=== PATIENT | female | born 1950 | race African-American/Black ===

== ENCOUNTER 2022-03-24 15:46 | Outpatient (REF) | payer OTHER, SELFPAY ==
--- NOTE | ~2022-03-24 | MM_ITS ---
EXAMINATION: MM SCREENING DIGITAL BREAST TOMOSYNTHESIS, BILATERAL CLINICAL INFORMATION: Screening. Asymptomatic. The lifetime risk of breast cancer based on the Tyrer-Cuzick Model is 5%. COMPARISON: Outside breast imaging: Bilateral ultrasound 02/28/2019; mammography 02/28/2019, 02/19/2019 ([place], [place]). TECHNIQUE: Digital breast tomosynthesis is performed in both the craniocaudal and mediolateral oblique views along with computer-aided detection (CAD). Synthesized 2D images are generated from the tomosynthesis. Additional right MLO view is provided. FINDINGS: There are scattered areas of fibroglandular density (ACR BI-RADS breast composition Category b). There are scattered small minor bilateral parenchymal asymmetries similar to prior outside exams. Small circumscribed oval nodule central 9:00 left breast is stable. Again, there are biopsy clip markers mid medial left breast and posterior upper outer right breast. No developing density or architectural abnormality or abnormal calcifications. No significant changes. MM/MM tomosynthesis screening BI IMPRESSION: No mammographic evidence of malignancy. ASSESSMENT: BI-RADS 2: Benign RECOMMENDATION: Routine annual mammography screening. This patient's information was entered into a reminder system with a target due date for their next mammogram.
== END 2022-03-24 15:47 | disposition home or self-care (01) ==
LOC: HO.MAMMO 15:46
PROVIDERS: Visit Provider Internal Medicine
DX: Z12.31 Encounter for screening mammogram for malignant neoplasm of breast (principal)
CPT/HCPCS: 77063; 77067

== ENCOUNTER 2022-05-24 13:12 | Outpatient (REF) | payer OTHER, SELFPAY ==
[2022-05-24 13:22] LABS: MANUAL DIFF FLAG NO
[2022-05-24 14:01] LABS: Basophils Percent Auto 0.4 % (0-2); Eosinophils Absolute Auto 0.1 X10*3/uL (0.0-0.4); Eosinophils Percent Auto 1.7 % (0-4); Hematocrit 37.9 % (37.0-47.0); Hemoglobin 12.6 g/dl (12.0-16.0); Imm Gran Abs Auto 0.02 X10*3/uL (0.00-0.03); Imm Gran Pct Auto 0.3 % (0.0-0.4); Lymphocytes Absolute Auto 3.3 X10*3/uL (1.2-4.9); Lymphocytes Percent Auto 44.4 % (20-40); Mean Corpuscular HGB Conc 33.2 g/dl (31.0-35.0); Mean Corpuscular Hemoglobin 30.4 pg (27.0-33.0); Mean Corpuscular Volume 91.5 fL (80.0-98.0); Mean Platelet Volume 9.6 fL (9.4-12.3); Monocytes Absolute Auto 0.4 X10*3/uL (0.1-1.2); Monocytes Percent Auto 4.8 % (2-11); Neutrophils Absolute Auto 3.6 x10*3/uL (2.0-8.3); Neutrophils Percent Auto 48.4 % (45-73); Platelet Count 386 X10*3/uL (160-400); Red Blood Count 4.14 X10*6/uL (4.20-5.50); Red Cell Distribution Width 12.9 % (11.0-16.0); White Blood Count 7.5 X10*3/uL (4.8-10.8)
[2022-05-24 14:16] LABS: Alanine Aminotransferase 34 U/L (0-31); Albumin Level 4.2 g/dL (3.5-5.0); Alkaline Phosphatase 80 U/L (39-117); Anion Gap 16 (12-20); Aspartate Amino Transferase 26 U/L (5-31); Bilirubin Total 0.3 mg/dL (0.0-1.0); Blood Urea Nitrogen 15 mg/dL (9-16); Calcium 9.6 mg/dL (8.4-10.2); Carbon Dioxide 26 mmol/L (22-29); Chloride 103 mmol/L (96-108); Cholesterol 196 mg/dL; Estimated Glomerular Filt Rate > 60; Glucose Random 172 mg/dL (60-115); HDL Cholesterol 55 mg/dL; LDL Cholesterol Calculated 126 mg/dl; Potassium 4.5 mmol/L (3.3-5.1); Sodium 140 mmol/L (135-145); Total Protein 7.5 g/dL (6.5-8.0); Triglycerides 76 mg/dL
== END 2022-05-24 13:13 | disposition home or self-care (01) ==
LOC: HO.LAB 13:12
PROVIDERS: PCP Internal Medicine; Visit Provider Internal Medicine
DX: Z00.00 Encounter for general adult medical examination without abnormal findings (principal); I10 Essential (primary) hypertension; Z13.31 Encounter for screening for depression
CPT/HCPCS: 36415; 80053; 80061; 85025

== ENCOUNTER 2022-12-11 13:13 | Outpatient (REF) | payer OTHER, SELFPAY ==
[2022-12-11 14:40] LABS: Estimated Average Glucose 160 mg/dL; Hemoglobin A1c % 7.2 %
[2022-12-11 15:04] LABS: Alanine Aminotransferase 23 U/L (0-31); Albumin Level 4.2 g/dL (3.5-5.0); Alkaline Phosphatase 73 U/L (39-117); Anion Gap 13 (12-20); Aspartate Amino Transferase 20 U/L (5-31); Bilirubin Total 0.5 mg/dL (0.0-1.0); Blood Urea Nitrogen 13 mg/dL (9-16); Calcium 9.7 mg/dL (8.4-10.2); Carbon Dioxide 28 mmol/L (22-29); Chloride 104 mmol/L (96-108); Estimated Glomerular Filt Rate > 60; Glucose Random 109 mg/dL (60-115); Potassium 4.6 mmol/L (3.3-5.1); Sodium 140 mmol/L (135-145); Total Protein 7.3 g/dL (6.5-8.0)
== END 2022-12-11 13:14 | disposition home or self-care (01) ==
LOC: HO.LAB 13:13
PROVIDERS: PCP Internal Medicine; Visit Provider Internal Medicine
DX: I10 Essential (primary) hypertension (principal); R73.01 Impaired fasting glucose
CPT/HCPCS: 36415; 80053; 83036

== ENCOUNTER 2023-01-22 08:27 | Day surgery (SDC) | payer OTHER, SELFPAY ==
[2023-01-17 12:15] VITALS: BMI 32.1
--- NOTE | 2023-01-19 08:06 | MHC.SHP ---
Pre-Procedural Eval Section A Date of Service: 01/19/23 The patient is an INPATIENT: No Changes since office visit: No Cold of Flu in the past 2 weeks, No New Medical Problems, No Changes in Medication and No Patient answered all questions The History & Physical has been completed within 30 days and I have reviewed it.: Yes Section B Chief Complaint: Age-related nuclear cataract, right eye Allergies: Allergies Allergy/AdvReac Type Severity Reaction Status Date / Time No Known Allergies Allergy Verified 01/17/23 11:03 Plan Diagnosis/Plan: Unchanged I have reviewed the history and physical and performed a pertinent physical examination on my patient. No changes have occurred unless specified. Time Spent With Patient Time: Total time managing care of this patient today ____ minutes.
--- NOTE | 2023-01-19 09:18 | P.CONAN_ITS ---
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 If so, by whom?: No Advance Directives: No Advance Directives Information Provided: Yes Advance Directives on File: No Recently lost weight without trying: No Nutrition Risks: No Nutritional Risk Patient : No Poor oral hygiene: Yes (full upper and lower dentures) Meds Allergies Allergy/AdvReac Type Severity Reaction Status Date / Time No Known Allergies Allergy Verified 01/17/23 11:03 Home Medications Medication Instructions Recorded Confirmed Last Taken Type cetirizine 10 mg tablet (Zyrtec) 10 mg PO DAILY 01/17/23 01/17/23 Unknown History ibuprofen 600 mg tablet 600 mg PO TID PRN pain 01/17/23 01/17/23 Unknown History losartan 50 mg-hydrochlorothiazide 1 tab PO DAILY 01/17/23 01/17/23 Unknown History 12.5 mg tablet metformin 500 mg tablet,extended 500 mg PO BID 01/17/23 01/17/23 Unknown History release 24 hr Exam Exam Date and Time: January 19, 2023 0918 Height,Weight and Vital Signs: Height 5 ft 1 in Weight 77.111 kg Assessment and Plan Assessment Anesthesia Assessment: Chart Reviewed Documented by User: Alexandra Olvera MD 01/22/23 10:07 [facility] Past Medical History Medical History (Updated 01/17/23 @ 11:03 by Rita Mansfield RN) Diabetes Elevated cholesterol HTN (hypertension) Hx of fracture of arm Family History Family history of problems with anesthesia: No Surgical History Surgical History (Updated 01/17/23 @ 12:00 by Rita Mansfield RN) Hx of elbow surgery Hx of hysterectomy History of Problems with Anesthesia: No Social History Social History 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 If so, by whom?: No Advance Directives: No Advance Directives Information Provided: Yes Advance Directives on File: No Recently lost weight without trying: No Nutrition Risks: No Nutritional Risk Patient : No Poor oral hygiene: Yes (full upper and lower dentures) Meds Allergies Allergy/AdvReac Type Severity Reaction Status Date / Time No Known Allergies Allergy Verified 01/17/23 11:03 Home Medications Medication Instructions Recorded Confirmed Last Taken Type cetirizine 10 mg tablet (Zyrtec) 10 mg PO DAILY 01/17/23 01/17/23 Unknown History ibuprofen 600 mg tablet 600 mg PO TID PRN pain 01/17/23 01/17/23 Unknown History losartan 50 mg-hydrochlorothiazide 1 tab PO DAILY 01/17/23 01/17/23 Unknown History 12.5 mg tablet metformin 500 mg tablet,extended 500 mg PO BID 01/17/23 01/17/23 Unknown History release 24 hr Exam Airway Mallampati Class: II TM Dist: >3cm Neck ROM: Full Heart: rrr Lungs: cta Assessment and Plan Assessment Anesthesia Assessment: Anesthesia Plan Discussed Final Anesthetic Review Family History of Problems with Anesthesia: No History of Problems with Anesthesia: No NPO: Yes ASA Class: II Final Preanesthetic Review: No Changes in Pt Med Stat, Meds/Allgs Chart Reviewed and Consent Obtained/Reviewed Patient Risk: Intermediate Procedure Risk: Intermediate Anesthetic Plan Anesthetic Plan: MAC: Disposition: Standard PACU
--- OUTSIDE RECORDS SUMMARY | 2023-01-22 08:28 | XMS_ITS ---
Author Name Felix Pettit Address [address] [place] [address] Organization [facility] Address [address] [place] [address] Care Team Providers Care Launch Leader Name Role Phone Felix Pettit Unavailable [phone] PROBLEMS Type Condition ICD9-CM Code [id number] Code Onset Dates Condition Status SNOMED Code Problem Preprocedural examination Z01.818 Active 033419626167999 Problem Colon cancer screening Z12.11 Active [id number] ALLERGIES No Known Allergies ENCOUNTERS Encounter Location Date Diagnosis [facility] [address] [place] [phone] 13 Dec, 2022 [facility] [address] [place] [phone] 02 Dec, 2022 Colon cancer screening Z12.11 and Preprocedural examination Z01.818 [facility] [address] [place] [phone] 16 Mar, 2022 IMMUNIZATIONS No Known Immunizations SOCIAL HISTORY Qualifiers Date Never Smoker REASON FOR REFERRAL FUNCTIONAL STATUS PLAN OF CARE Activity Details VITAL SIGNS Weight 172 lbs 2022-12-12 Height 61 in 2022-12-12 BMI 32.50 kg/m2 2022-12-12 Temperature 96.9 degrees Fahrenheit Blood pressure systolic 000 mm Hg Blood pressure diastolic 00 mm Hg 2023-05 -02 MEDICATIONS Unknown Medications PROCEDURES Procedure Date Ordered Result Body Site BP SCR NOT PRFRM REC REASON NOS December 12, 2022 TOBACCO NON-USER December 12, 2022 DOC MEDS VERIFIED W/PT OR RE December 12, 2022 COLORECTAL CA SCREEN DOC REV December 12, 2022 RESULTS No Results REASON FOR VISIT Patient presents today for a discuss colonoscopy, screening colonoscopy, new pt appt Insurance Providers Health Insurance Type Health Plan Insurance Address Health Plan Insurance Phone Health Plan Insurance Name Health Plan Coverage Dates Member ID Patient Relationship to Subscriber Patient Address Patient Phone Patient Name Patient Date of Subscriber ID Subscriber Name Subscriber Date of Group No [employer] [address] [facility] [address] [employer] self DUSTIN RAMOS [id number]
[2023-01-22 09:45] VITALS: BP 129/82; PULSE 64; RESP 18; TEMP 36.2; O2SAT 100
[2023-01-22 09:53] LABS: Glucose, Whole Blood 101 mg/dL (60-115)
[2023-01-22 10:01] VITALS: BMI 32.1
[2023-01-22] MEDS: Tetracaine HCl/PF 0.5% Oph Sol 4 ML DROPS 1 DROP EYE-RIGHT (10:04)
[2023-01-22] MEDS: Phenylephrine HCL 2.5% Oph SoL 2 ML BOTTLE 1 DROP EYE-RIGHT ×3 (10:04→10:10)
[2023-01-22] MEDS: Lactated Ringers 500 ML 50 ML IV (10:04)
[2023-01-22] MEDS: Cyclopentolate 1 % Ophth Sol 2 ML DRPBTL 1 DROP EYE-RIGHT ×3 (10:05→10:11)
[2023-01-22] MEDS: Tropicamide 1 % Ophth Sol 3 ML BTL 1 DROP EYE-RIGHT ×3 (10:05→10:11)
[2023-01-22] MEDS: Ketorolac Tromethamine 0.5% Op 5 ML DROPS 1 DROP EYE-RIGHT ×3 (10:05→10:10)
--- NOTE | 2023-01-22 10:47 | HO.PNOPHT ---
Ophthalmology Procedure Procedure Date of Service: 01/22/23 Ophthalmology Viscoelastic: Healon Duet Dual Pack Pro Ophthalmology Lenses: TECNIS [id number] (21.5) Procedure Notes: PREOPERATIVE DIAGNOSIS: Decreased visual acuity right eye secondary to cataract POSTOPERATIVE DIAGNOSIS: Same PROCEDURE: Right cataract extraction with intraocular lens insertion SURGEON: Arnulfo Hastings M.D. ANESTHESIA: Topical/MAC ESTIMATED BLOOD LOSS: None COMPLICATIONS: None After obtaining informed consent, the patient was brought to the operating room suite and placed in the supine position. After adequate sedation per anesthesia, topical drops of Tetracaine were given to the right eye. The eye was then prepped and draped in the usual sterile fashion. The operating room microscope was then positioned over the operative eye and a lid speculum placed. A paracentesis was created. Viscoelastic was then instilled into the anterior chamber. A three plane incision was then created temporally, utilizing a 2.85 mm keratome. Capsulotomy forceps were then utilized to create a circular tear capsulotomy. Hydrodissection and hydrodelineation were carried out until adequate mobilization of the nucleus occurred. Phacoemulsification was then utilized to remove the dense central nucleus followed by removal of the cortical material utilizing the automated aspiration irrigation unit. Viscoelastic was instilled into the posterior capsular bag followed by placement of a posterior chamber intraocular lens without difficulty. The residual Viscoelastic was then removed utilizing the automated IA machine. The wound was checked and found to be watertight. The patient tolerated the procedure well and the lid speculum was removed. Intracameral injection of Vigamox 0.1 mL followed by a subtenon injection of Kenalog-40 0.2 mL were administered. The patient will be seen in the a.m.
[2023-01-22 11:10] VITALS: BP 154/77; PULSE 58; RESP 19; TEMP 36.1; O2SAT 97
== END 2023-01-22 11:27 | disposition home or self-care (01) ==
PROVIDERS: PCP Internal Medicine; Visit Provider Ophthalmology
PROC: (CPT 66985; principal; 2023-01-22 11:40)
DX: H25.11 Age-related nuclear cataract, right eye (principal); H54.7 Unspecified visual loss; H18.413 Arcus senilis, bilateral; H11.153 Pinguecula, bilateral; H11.133 Conjunctival pigmentations, bilateral; I10 Essential (primary) hypertension; E78.00 Pure hypercholesterolemia, unspecified; E11.9 Type 2 diabetes mellitus without complications; Z79.84 Long term (current) use of oral hypoglycemic drugs; Z79.1 Long term (current) use of non-steroidal anti-inflammatories (NSAID); Z79.899 Other long term (current) drug therapy
CPT/HCPCS: 66984; 82947; J2250; J3301; V2632

== ENCOUNTER 2023-02-05 07:31 | Day surgery (SDC) | payer OTHER, SELFPAY ==
[2023-01-17 12:21] VITALS: BMI 32.1
--- NOTE | 2023-02-01 14:48 | P.CONAN_ITS ---
Documented by User: Ivette Raphael NP 02/01/23 14:49 HPI - Anesthesia Eval Consult details Narrative: 72yo Left Cataract Multifocal with IOL Insertion PCP cleared Right eye 01/22/23 with MAC: midaz 1 [facility] Past Medical History Medical History (Updated 01/17/23 @ 11:03 by Rita Mansfield RN) Diabetes Elevated cholesterol HTN (hypertension) Hx of fracture of arm Family History Family history of problems with anesthesia: No Surgical History Surgical History (Updated 01/17/23 @ 12:00 by Rita Mansfield RN) Hx of elbow surgery Hx of hysterectomy History of Problems with Anesthesia: No Social History Social History 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 If so, by whom?: No Advance Directives: No Advance Directives Information Provided: Yes Advance Directives on File: No Recently lost weight without trying: No Eating poorly because of decreased appetite: No Nutrition Risks: No Nutritional Risk Patient : No : No Poor oral hygiene: Yes (full upper and lower dentures) Meds Allergies Allergy/AdvReac Type Severity Reaction Status Date / Time No Known Allergies Allergy Verified 01/17/23 11:03 Home Medications Medication Instructions Recorded Confirmed Last Taken Type cetirizine 10 mg tablet (Zyrtec) 10 mg PO DAILY 01/17/23 01/17/23 Unknown His tory ibuprofen 600 mg tablet 600 mg PO TID PRN pain 01/17/23 01/17/23 Unknown History losartan 50 mg-hydrochlorothiazide 1 tab PO DAILY 01/17/23 01/17/23 Unknown History 12.5 mg tablet metformin 500 mg tablet,extended 500 mg PO BID 01/17/23 01/17/23 Unknown History release 24 hr Exam Exam Date and Time: February 01, 2023 1448 Height,Weight and Vital Signs: Height 5 ft 1 in Weight 77.111 kg Assessment and Plan Assessment Anesthesia Assessment: Chart Reviewed Final Anesthetic Review Family History of Problems with Anesthesia: No History of Problems with Anesthesia: No Documented by User: Hugo Duarte MD 02/05/23 08:08 [facility] Past Medical History Medical History (Updated 01/17/23 @ 11:03 by Rita Mansfield RN) Diabetes Elevated cholesterol HTN (hypertension) Hx of fracture of arm Surgical History Surgical History (Updated 01/17/23 @ 12:00 by Rita Mansfield RN) Hx of elbow surgery Hx of hysterectomy Social History Social History 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 If so, by whom?: No Advance Directives: No Advance Directives Information Provided: Yes Advance Directives on File: No Recently lost weight without trying: No Eating poorly because of decreased appetite: No Nutrition Risks: No Nutritional Risk Patient : No : No Poor oral hygiene: Yes (full upper and lower dentures) Meds Allergies Allergy/AdvReac Type Severity Reaction Status Date / Time No Known Allergies Allergy Verified 01/17/23 11:03 Home Medications Medication Instructions Recorded Confirmed Last Taken Type cetirizine 10 mg tablet (Zyrtec) 10 mg PO DAILY 01/17/23 01/17/23 Unknown History ibuprofen 600 mg tablet 600 mg PO TID PRN pain 01/17/23 01/17/23 Unknown History losartan 50 mg-hydrochlorothiazide 1 tab PO DAILY 01/17/23 01/17/23 Unknown History 12.5 mg tablet metformin 500 mg tablet,extended 500 mg PO BID 01/17/23 01/17/23 Unknown History release 24 hr Exam Airway Mallampati Class: III TM Dist: >3cm Neck ROM: Full Denture: Upper and Lower Assessment and Plan Final Anesthetic Review NPO: Yes ASA Class: III Final Preanesthetic Review: No Changes in Pt Med Stat, Meds/Allgs Chart Reviewed, Consent Obtained/Reviewed and Anes Risks/Benef Reviewed Patient Risk: Low Procedure Risk: Low Anesthetic Plan Anesthetic Plan: MAC: Disposition: Standard PACU
--- NOTE | 2023-02-02 08:32 | MHC.SHP ---
Pre-Procedural Eval Section A Date of Service: 02/02/23 The patient is an INPATIENT: No Changes since office visit: No Cold of Flu in the past 2 weeks, No New Medical Problems, No Changes in Medication and No Patient answered all questions The History & Physical has been completed within 30 days and I have reviewed it.: Yes Section B Chief Complaint: Age-related nuclear cataract, left eye Allergies: Allergies Allergy/AdvReac Type Severity Reaction Status Date / Time No Known Allergies Allergy Verified 01/17/23 11:03 Plan Diagnosis/Plan: Unchanged I have reviewed the history and physical and performed a pertinent physical examination on my patient. No changes have occurred unless specified. Time Spent With Patient Time: Total time managing care of this patient today ____ minutes.
--- OUTSIDE RECORDS SUMMARY | 2023-02-05 07:33 | XMS_ITS ---
Author Name Felix Pettit Address [address] [place] [address] Organization [facility] Address [address] [place] [address] Care Team Providers Care Aws Developer Name Role Phone Felix Pettit Unavailable [phone] PROBLEMS Type Condition ICD9-CM Code [id number] Code Onset Dates Condition Status SNOMED Code Problem Preprocedural examination Z01.818 Active 602910278730817 Problem Colon cancer screening Z12.11 Active [id number] ALLERGIES No Known Allergies ENCOUNTERS Encounter Location Date Diagnosis [facility] [address] [place] [phone] 13 Dec, 2022 [facility] [address] [place] [phone] 02 Dec, 2022 Colon cancer screening Z12.11 and Preprocedural examination Z01.818 [facility] [address] [place] [phone] 16 Mar, 2022 IMMUNIZATIONS No Known Immunizations [...] Date of Group No [employer] [address] [address] [facility] [address] [employer] self DUSTIN RAMOS [id number]
[2023-02-05 07:48] VITALS: BP 143/72; PULSE 60; RESP 20; TEMP 36.1; O2SAT 98
[2023-02-05 07:57] LABS: Glucose, Whole Blood 106 mg/dL (60-115)
[2023-02-05] MEDS: Cyclopentolate 1 % Ophth Sol 2 ML DRPBTL 1 DROP EYE-LEFT ×3 (07:57→07:58)
[2023-02-05] MEDS: Tetracaine HCl/PF 0.5% Oph Sol 4 ML DROPS 1 DROP EYE-LEFT (07:57)
[2023-02-05] MEDS: Lactated Ringers 500 ML 50 ML IV (07:57)
[2023-02-05] MEDS: Tropicamide 1 % Ophth Sol 3 ML BTL 1 DROP EYE-LEFT ×3 (07:58→07:59)
[2023-02-05] MEDS: Ketorolac Tromethamine 0.5% Op 5 ML DROPS 1 DROP EYE-LEFT ×3 (07:58→07:59)
[2023-02-05] MEDS: Phenylephrine HCL 2.5% Oph SoL 2 ML BOTTLE 1 DROP EYE-LEFT ×3 (07:58→07:59)
--- NOTE | 2023-02-05 08:59 | HO.PNOPHT ---
Ophthalmology Procedure Procedure Date of Service: 02/05/23 Ophthalmology Viscoelastic: Healvaibhav Duet Dual Pack Pro Ophthalmology Lenses: TECNIS [id number] (21.5) Procedure Notes: PREOPERATIVE DIAGNOSIS: Decreased visual acuity left eye secondary to cataract POSTOPERATIVE DIAGNOSIS: Same PROCEDURE: Left cataract extraction with intraocular lens insertion SURGEON: Arnulfo Hastings M.D. ANESTHESIA: Topical/MAC ESTIMATED BLOOD LOSS: None COMPLICATIONS: None After obtaining informed consent, the patient was brought to the operation room suite and placed in the supine position. After adequate sedation per anesthesia, topical drops of Tetracaine were given to the left eye. The eye was then prepped and draped in the usual sterile fashion. The operating room microscope was then positioned over the operative eye and a lid speculum placed. A paracentesis was created. Viscoelastic was then instilled into the anterior chamber. A three plane incision was then created temporally, utilizing a 2.85 mm keratome. Capsulotomy forceps were then utilized to create a circular tear capsulotomy. Hydrodissection and hydrodelineation were carried out until adequate mobilization of the nucleus occurred. Phacoemulsification was then utilized to remove the dense central nucleus followed by removal of the cortical material utilizing the automated aspiration irrigation unit. Viscoat elastic was instilled into the posterior capsular bag followed by placement of a posterior chamber intraocular lens without difficulty. The residual Viscoat elastic was then removed utilizing the automated IA machine. The wound was check and found to be watertight. The patient tolerated the procedure well and the lid speculum was removed. Intracameral injection of Vigamox 0.1 mL followed by a subtenon injection of Kenalog-40 0.2 mL were administered. The patient will be seen in the a.m.
[2023-02-05 09:22] VITALS: PULSE 55; RESP 17; TEMP 36.4; O2SAT 96
== END 2023-02-05 09:25 | disposition home or self-care (01) ==
PROVIDERS: PCP Internal Medicine; Visit Provider Ophthalmology
PROC: (CPT 66985; principal; 2023-02-05 09:10)
DX: H25.12 Age-related nuclear cataract, left eye (principal); H54.7 Unspecified visual loss; H18.413 Arcus senilis, bilateral; H11.153 Pinguecula, bilateral; H11.133 Conjunctival pigmentations, bilateral; I10 Essential (primary) hypertension; E11.9 Type 2 diabetes mellitus without complications; E78.00 Pure hypercholesterolemia, unspecified; Z79.899 Other long term (current) drug therapy; Z79.84 Long term (current) use of oral hypoglycemic drugs
CPT/HCPCS: 66984; 82947; J2250; J3301; V2632

== ENCOUNTER 2023-03-26 10:13 | Outpatient (REF) | payer OTHER, SELFPAY ==
--- NOTE | ~2023-03-26 | MM_ITS ---
EXAMINATION: MM SCREENING DIGITAL BREAST TOMOSYNTHESIS, BILATERAL CLINICAL INFORMATION: Screening. Asymptomatic. COMPARISON: Mammography: 03/24/2022. 02/28/2019, and 02/19/2019. TECHNIQUE: Digital breast tomosynthesis is performed in both the craniocaudal and mediolateral oblique views along with computer-aided detection (CAD). Synthesized 2D images are generated from the tomosynthesis. FINDINGS: There are scattered areas of fibroglandular density (ACR BI-RADS breast composition Category b). Post benign biopsy clips noted in both breasts. Scattered small bilateral parenchymal asymmetries appear stable. Small circumscribed oval nodule central 9:00 left breast is stable. There are no suspicious masses, suspicious grouped calcifications, or areas of architectural distortion. The parenchymal pattern is stable from prior exams. MM/MM tomosynthesis screening BI IMPRESSION: No mammographic evidence of malignancy. ASSESSMENT: BI-RADS BI-RADS 2 - Benign Findings RECOMMENDATION: Routine annual mammography screening. 1 year F/U This examination should not preclude the clinical evaluation of a suspicious palpable abnormality. This patient's information was entered into a reminder system with a target due date for their next mammogram.
== END 2023-03-26 10:14 | disposition home or self-care (01) ==
LOC: HO.MAMMO 10:13
PROVIDERS: PCP Internal Medicine; Visit Provider Internal Medicine
DX: Z12.31 Encounter for screening mammogram for malignant neoplasm of breast (principal)
CPT/HCPCS: 77063; 77067

== ENCOUNTER → 2023-03-26 10:15 | Outpatient (BNV) | payer OTHER, SELFPAY | PROVIDERS: PCP Internal Medicine; Visit Provider Radiology Diagnostic Radiology | DX: Z12.31 Encounter for screening mammogram for malignant neoplasm of breast (principal) | CPT/HCPCS: 77063; 77067 ==

== ENCOUNTER 2023-05-28 13:02 | Outpatient (REF) | payer OTHER, SELFPAY ==
[2023-05-28 13:17] LABS: MANUAL DIFF FLAG NO
[2023-05-28 13:52] LABS: Basophils Percent Auto 0.5 % (0-2); Eosinophils Absolute Auto 0.2 X10*3/uL (0.0-0.4); Eosinophils Percent Auto 1.7 % (0-4); Hematocrit 36.7 % (37.0-47.0); Imm Gran Abs Auto 0.02 X10*3/uL (0.00-0.03); Imm Gran Pct Auto 0.2 % (0.0-0.4); Lymphocytes Absolute Auto 2.9 X10*3/uL (1.2-4.9); Lymphocytes Percent Auto 33.5 % (20-40); Mean Corpuscular HGB Conc 32.7 g/dl (31.0-35.0); Mean Corpuscular Hemoglobin 30.3 pg (27.0-33.0); Mean Corpuscular Volume 92.7 fL (80.0-98.0); Mean Platelet Volume 9.5 fL (9.4-12.3); Monocytes Absolute Auto 0.4 X10*3/uL (0.1-1.2); Monocytes Percent Auto 4.2 % (2-11); Neutrophils Absolute Auto 5.2 x10*3/uL (2.0-8.3); Neutrophils Percent Auto 59.9 % (45-73); Platelet Count 344 X10*3/uL (160-400); Red Blood Count 3.96 X10*6/uL (4.20-5.50); Red Cell Distribution Width 12.9 % (11.0-16.0); White Blood Count 8.7 X10*3/uL (4.8-10.8)
[2023-05-28 14:47] LABS: Alanine Aminotransferase 37 U/L (0-31); Albumin Level 4.2 g/dL (3.5-5.0); Alkaline Phosphatase 69 U/L (39-117); Anion Gap 16 (12-20); Aspartate Amino Transferase 28 U/L (5-31); Bilirubin Total 0.3 mg/dL (0.0-1.0); Blood Urea Nitrogen 17 mg/dL (9-16); Calcium 9.7 mg/dL (8.4-10.2); Carbon Dioxide 23 mmol/L (22-29); Chloride 102 mmol/L (96-108); Cholesterol 143 mg/dL (<200); Estimated Glomerular Filt Rate > 60; Glucose Random 79 mg/dL (60-115); HDL Cholesterol 58 mg/dL (>40); LDL Cholesterol Calculated 65 mg/dL (<100); Potassium 4.3 mmol/L (3.3-5.1); Sodium 137 mmol/L (135-145); Total Protein 7.7 g/dL (6.5-8.0); Triglycerides 102 mg/dL (<150)
[2023-05-28 14:57] LABS: Vitamin B12 899 pg/mL (200-900)
[2023-05-28 14:58] LABS: Estimated Average Glucose 137 mg/dL; Hemoglobin A1c % 6.4 % (<6.0)
[2023-05-28 17:11] LABS: Creatinine Urine 35.24 mg/dL; Microalbumin Urine < 5.0 mg/L
== END 2023-05-28 13:03 | disposition home or self-care (01) ==
LOC: HO.LAB 13:02
PROVIDERS: PCP Internal Medicine; Visit Provider Internal Medicine
DX: Z13.31 Encounter for screening for depression (principal); E11.9 Type 2 diabetes mellitus without complications; E78.00 Pure hypercholesterolemia, unspecified; I10 Essential (primary) hypertension
CPT/HCPCS: 36415; 80053; 80061; 82043; 82570; 82607; 83036; 85025

== ENCOUNTER 2023-12-18 15:30 | Outpatient (REF) | payer OTHER, SELFPAY ==
[2023-12-18 16:08] LABS: Estimated Average Glucose 163 mg/dL; Hemoglobin A1c % 7.3 % (<6.0)
[2023-12-18 16:33] LABS: Alanine Aminotransferase 31 U/L (0-31); Albumin Level 4.3 g/dL (3.5-5.0); Alkaline Phosphatase 67 U/L (39-117); Anion Gap 16 (12-20); Aspartate Amino Transferase 26 U/L (5-31); Bilirubin Total 0.3 mg/dL (0.0-1.0); Blood Urea Nitrogen 17 mg/dL (9-16); Carbon Dioxide 26 mmol/L (22-29); Chloride 101 mmol/L (96-108); Estimated Glomerular Filt Rate > 60; Glucose Random 143 mg/dL (60-115); Potassium 4.1 mmol/L (3.3-5.1); Sodium 139 mmol/L (135-145); Total Protein 7.8 g/dL (6.5-8.0)
== END 2023-12-18 15:31 | disposition home or self-care (01) ==
LOC: HO.LAB 15:30
PROVIDERS: PCP Internal Medicine; Visit Provider Internal Medicine
DX: E11.9 Type 2 diabetes mellitus without complications (principal); E78.00 Pure hypercholesterolemia, unspecified; I10 Essential (primary) hypertension; Z68.31 Body mass index [BMI] 31.0-31.9, adult
CPT/HCPCS: 36415; 80053; 83036

== ENCOUNTER 2024-03-18 09:06 | Outpatient (REF) | payer OTHER, SELFPAY ==
[2024-03-18 11:08] LABS: Alanine Aminotransferase 28 U/L (0-31); Albumin Level 4.2 g/dL (3.5-5.0); Alkaline Phosphatase 63 U/L (39-117); Anion Gap 14 (12-20); Aspartate Amino Transferase 24 U/L (5-31); Bilirubin Total 0.4 mg/dL (0.0-1.0); Blood Urea Nitrogen 13 mg/dL (9-16); Calcium 9.6 mg/dL (8.4-10.2); Carbon Dioxide 29 mmol/L (22-29); Chloride 103 mmol/L (96-108); Cholesterol 134 mg/dL (<200); Estimated Glomerular Filt Rate > 60; Glucose Random 135 mg/dL (60-115); HDL Cholesterol 58 mg/dL (>40); LDL Cholesterol Calculated 62 mg/dL (<100); Potassium 4.4 mmol/L (3.3-5.1); Sodium 142 mmol/L (135-145); Total Protein 7.4 g/dL (6.5-8.0); Triglycerides 70 mg/dL (<150)
[2024-03-18 11:14] LABS: Estimated Average Glucose 154 mg/dL
[2024-03-18 11:37] LABS: Microalbum/Creatinine Ratio Ur 5.7 ug/mg cr (<30)
[2024-03-18 11:49] LABS: Vitamin B12 1228 pg/mL (200-900)
== END 2024-03-18 09:07 | disposition home or self-care (01) ==
LOC: HO.LAB 09:06
PROVIDERS: PCP Internal Medicine; Visit Provider Internal Medicine
DX: E11.9 Type 2 diabetes mellitus without complications (principal); E78.00 Pure hypercholesterolemia, unspecified; I10 Essential (primary) hypertension; I73.00 Raynaud's syndrome without gangrene
CPT/HCPCS: 36415; 80053; 80061; 82043; 82570; 82607; 83036

== ENCOUNTER 2024-03-31 14:02 | Outpatient (REF) | payer OTHER, SELFPAY ==
--- NOTE | ~2024-03-31 | MM_ITS ---
EXAMINATION: MM SCREENING DIGITAL BREAST TOMOSYNTHESIS, BILATERAL CLINICAL INFORMATION: Screening. Asymptomatic. COMPARISON: Mammography: This study is compared with prior exams dating back to 2019. TECHNIQUE: Digital breast tomosynthesis is performed in both the craniocaudal and mediolateral oblique views along with computer-aided detection (CAD). Synthesized 2D images are generated from the tomosynthesis. FINDINGS: There are scattered areas of fibroglandular density (ACR BI-RADS breast composition Category b). There are no significant masses, abnormal calcifications, or other abnormalities. There is a biopsy tissue marker in each breast from from prior benign percutaneous biopsies. MM/MM tomosynthesis screening BI IMPRESSION: No mammographic evidence of malignancy. ASSESSMENT: BI-RADS BI-RADS 2 - Benign Findings RECOMMENDATION: Routine annual mammography screening. 1 year F/U This examination should not preclude the clinical evaluation of a suspicious palpable abnormality. This patient's information was entered into a reminder system with a target due date for their next mammogram. Electronically signed by: Marjorie Starr MD 04/28/2024 10:14 AM EDT
== END 2024-03-31 14:03 | disposition home or self-care (01) ==
LOC: HO.MAMMO 14:02
PROVIDERS: PCP Internal Medicine; Visit Provider Internal Medicine
DX: Z12.31 Encounter for screening mammogram for malignant neoplasm of breast (principal)
CPT/HCPCS: 77063; 77067

== ENCOUNTER → 2024-03-31 14:15 | Outpatient (BNV) | payer OTHER, SELFPAY | PROVIDERS: PCP Internal Medicine; Visit Provider Radiology Diagnostic Radiology | DX: Z12.31 Encounter for screening mammogram for malignant neoplasm of breast (principal) | CPT/HCPCS: 77063; 77067 ==

== ENCOUNTER 2024-06-10 14:57 | Outpatient (REF) | payer OTHER, SELFPAY ==
[2024-06-10 16:16] LABS: Alanine Aminotransferase 46 U/L (0-31); Albumin Level 4.3 g/dL (3.5-5.0); Alkaline Phosphatase 64 U/L (39-117); Anion Gap 15 (12-20); Aspartate Amino Transferase 31 U/L (5-31); Bilirubin Total 0.3 mg/dL (0.0-1.0); Blood Urea Nitrogen 12 mg/dL (9-16); Calcium 9.4 mg/dL (8.4-10.2); Carbon Dioxide 25 mmol/L (22-29); Chloride 104 mmol/L (96-108); Estimated Glomerular Filt Rate > 60; Glucose Random 85 mg/dL (60-115); Potassium 3.9 mmol/L (3.3-5.1); Sodium 140 mmol/L (135-145); Total Protein 7.6 g/dL (6.5-8.0)
[2024-06-10 16:20] LABS: Estimated Average Glucose 151 mg/dL; Hemoglobin A1C 165.4875 umol/L; Hemoglobin A1c % 6.9 % (<6.0)
== END 2024-06-10 14:58 | disposition home or self-care (01) ==
LOC: HO.LAB 14:57
PROVIDERS: PCP Internal Medicine; Visit Provider Internal Medicine
DX: E11.9 Type 2 diabetes mellitus without complications (principal); E78.00 Pure hypercholesterolemia, unspecified; I10 Essential (primary) hypertension; Z13.31 Encounter for screening for depression
CPT/HCPCS: 36415; 80053; 83036

== ENCOUNTER 2024-09-09 13:45 | Outpatient (REF) | payer SELFPAY ==
--- OUTSIDE RECORDS SUMMARY | 2024-09-09 14:41 | XMS_ITS ---
Author Organization [facility] Address [address] [place] [address] Care Team Providers Care Sole Stapler Welt Name Role Phone Jazmin Whitley Primary Care Provider Unavailab Felix Vicente Unavailable [phone] REASON FOR VISIT date Encounters Encounter Location Date Provider Diagnosis [facility] [address] [place] [phone] 06/30/2024 Felix Pettit PLAN OF TREATMENT Next Appt Details Provider Name:Felix Pettit , 10/13/2024 08:30:00 AM, [address] [facility] , [place], [place], [id number],
--- OUTSIDE RECORDS SUMMARY | 2024-09-09 14:41 | XMS_ITS ---
Author Organization [facility] Address [address] [place] [address] Care Team Providers Care Distillation Operator Name Role Phone Stanley Whitleynima Primary Care Provider UnavailFelix Rangel [phone] ALLERGIES No Known Allergies REASON FOR VISIT Patient presents today for a colon screening MEDICATIONS Medication SIG (Take, Route, Frequency, Duration) Notes Start Date End Date Status Losartan Potassium-HCTZ 100-12.5 MG TAKE 1 TABLET BY MOUTH EVERY DAY . REPLACES 50/12.5 TAB Oral for 90 Active metFORMIN HCl ER 500 MG TAKE 1 TABLET BY MOUTH TWICE A DAY Oral for 90 Active Rosuvastatin Calcium 10 MG TAKE 1 TABLET BY MOUTH EVERY DAY Oral for 90 Active SOCIAL HISTORY Tobacco Use: Social History Observation Description Date Details (start date - stop date) Never Smoker NA - NA Sex Assigned At : Social History Observation Description Sex Assigned At Unknown Tobacco Use/Smoking Question Answer Notes Patient is a nonsmoker Alcohol Screen Question Answer Notes Did you have a drink containing alcohol in the p ast year? No Points 0 Interpretation Negative VITAL SIGNS BMI 32.31 kg/m2 05/27/2024 Blood pressure systolic 00 mm Hg 05/27/20 24 Blood pressure diastolic 00 mm Hg 024 Height 61 in 05/27/2024 Weight 171 lbs 05/27/2024 Encounters Encounter Location Date Provider Diagnosis [facility] [address] [place] [address] 05/27/2024 Felix Pettit Colon cancer screeni ng Z12.11 and Preprocedural examination Z01.818 ASSESSMENTS Encounter Date Diagnosis Assessment Notes Treatment Notes Treatment Clinical Notes 05/27/2024 Colon cancer screening (ICD-10 - Z12.11) Do not take the Metformin the night before or on the morning of the colonoscopy 05/27/2024 Preprocedural examination (ICD-10 - Z01.818) PLAN OF TREATMENT Treatment Notes Assessment Notes Colon cancer screening Do not take the M etformin the night before or on the morning of the colonoscopy Future Test Test Name Order Date COLONOSCOPY 05/27/2024 Next Appt Details Follow Up: prn, Reason: Provider Name:Felix Pettit , 10/13/2024 08:30:00 AM, [address] [place] [address], [phone], Progress Notes * Examination Category Sub-Category Detail Notes General Examination GENERAL APPEARANCE: pleasant , well nourished, well developed, in no acute distress HEAD: EYES: sclera non-icteric EARS: NOSE: THROAT: NECK/THYROID: no cervical lymphade nopathy, neck supple HEART: S1, S2 normal CHEST: LUNGS: clear to auscultatio n bilaterally ABDOMEN: normal bowel sounds, no guarding or rigidity, no guarding or rigidity, no masses palpable, soft, nontender, nondistended NEUROLOGIC: alert and oriented SKIN: nonjaundiced, no spi reji angiomata EXTREMITIES: no edema PERIPHERAL PULSES: BACK: BREASTS: MUSCULOSKELETAL: MALE GENITOURINARY: LYMPH NODES: RECTAL EXAM: FEMALE GENITOURINARY: ORAL CAVITY: mucosa moist
--- OUTSIDE RECORDS SUMMARY | 2024-09-09 14:41 | XMS_ITS ---
Author Organization [facility] Address [address] [place] [address] Care Team Providers Care Picker Feeder Name Role Phone Jazmin Whitley Primary Care Provider Unavailab Felix Vicente Unavailable [phone] Encounters Encounter Location Date Provider Diagnosis [facility] [address] [place] [address] 09/08/2024 Felix Pettit PLAN OF TREATMENT Next Appt Details Provider Name:Felix Pettit , 10/13/2024 08:30:00 AM, [address] [place] [address] , [place], [place], [phone],
--- OUTSIDE RECORDS SUMMARY | 2024-09-09 14:42 | XMS_ITS | Patient Health Record ---
Author Organization [facility] Address [address] [place] [address] Care Team Providers Care Metal Sorter Name Role Phone Srinitish Jazmin Primary Care Provider UnavailFelix Rangel Unavailable [phone] ALLERGIES No Known Allergies REASON FOR REFERRAL No Information MEDICATIONS Medication SIG (Take, Route, Frequency, Duration) [...] ast year? No Points 0 Interpretation Negative PROBLEMS Problem Type ICD Code Onset Dates Problem Status W/U Status Risk SNOMED Code Notes Problem Colon cancer screening (Z12.11) Active confirmed 011962424 Problem Preprocedural examination (Z01.818) Active confirmed [id number] VITAL SIGNS Blood pressure diastolic 00 mm Hg 05/27/2024 Height 61 in 05/27/2024 Blood pressure systolic 00 mm Hg 05/27/2024 Weight 171 lbs 05/27/2024 BMI 32.31 kg/m2 05/27/2024 Encounters Encounter Location Date Provider Diagnosis [facility] [address] [place] [address] 05/27/2024 Felix Pettit Colon cancer screeni ng Z12.11 and Preprocedural examination Z01.818 [facility] [address] [place] [address] 06/30/2024 Felix Pettit [facility] [address] [place] [address] 09/08/2024 Felix Pettit ASSESSMENTS Encounter Date Diagnosis Assessment Notes Treatment Notes Treatment Clinical Notes 05/27/2024 Colon cancer screening (ICD-10 - Z12.11) Do not take the Metformin the night before or on the morning of the colonoscopy 05/27/2024 Preprocedural examination (ICD-10 - Z01.818) PLAN OF TREATMENT Future Test Test Name Order Date COLONOSCOPY 05/27/2024 Next Appt Details Provider Name:Felix Pettit , 10/13/2024 08:30:00 AM, [address] [place] [address] , [place], [place], [phone], Insurance Providers Payer Name Payer Address Payer Phone Subscriber Number Group Number Insured Name Patient Relationship to Insured Coverage Start Date Coverage End Date [facility] [address] [address] [place] [address] [id number] DUSTIN RAMOS Self - patient is the insured MEDICAL (GENERAL) HISTORY Medical History History ICD Code Denies DE,CVA,Lung disease,renal disease Negative colonoscopy in CT i n 03/[address] Friedman with the report describing a difficult exam and only a good prep. Dr. Friedman recommended a repeat colonoscopy in 5 years, rather than 10, due to the factors of it being a difficult exam and only a good prep. She thinks that was her first colonoscopy. NIDDM Hypertension Elevated Cholesterol Surgical History Surgery Date(Month/Year) Left elbow LAYA Bilateral cataracts
[2024-09-09 14:50] LABS: Estimated Average Glucose 146 mg/dL; Hemoglobin A1C 152.7521 umol/L; Hemoglobin A1c % 6.7 % (<6.0); Total Hemoglobin (HGBA1C) 3043.7985 umol/L
[2024-09-09 16:02] LABS: Alanine Aminotransferase 32 U/L (0-31); Albumin Level 4.2 g/dL (3.5-5.0); Alkaline Phosphatase 56 U/L (39-117); Anion Gap 13 (12-20); Aspartate Amino Transferase 28 U/L (5-31); Bilirubin Total 0.4 mg/dL (0.0-1.0); Blood Urea Nitrogen 16 mg/dL (9-16); Calcium 9.6 mg/dL (8.4-10.2); Carbon Dioxide 28 mmol/L (22-29); Chloride 104 mmol/L (96-108); Estimated Glomerular Filt Rate > 60; Glucose Random 88 mg/dL (60-115); Potassium 4.2 mmol/L (3.3-5.1); Sodium 141 mmol/L (135-145); Total Protein 7.7 g/dL (6.5-8.0)
== END 2024-09-09 13:46 | disposition home or self-care (01) ==
LOC: HO.LAB 13:45
PROVIDERS: PCP Internal Medicine; Visit Provider Internal Medicine
DX: E11.9 Type 2 diabetes mellitus without complications (principal); I10 Essential (primary) hypertension; R74.01 Elevation of levels of liver transaminase levels; Z68.32 Body mass index [BMI] 32.0-32.9, adult
CPT/HCPCS: 36415; 80053; 83036

== ENCOUNTER 2024-10-13 07:17 | Day surgery (SDC) | payer SELFPAY ==
[2024-10-09 14:13] VITALS: BMI 32.3
--- NOTE | 2024-10-10 09:01 | HO.ANESPROP2 ---
Documented by User: Ivette Raphael NP 10/10/24 09:01 HPI - Anesthesia Eval Consult details Narrative: 74yo F for Colonoscopy PMFSH Past Medical History Medical History Hx of fracture of arm Diabetes Elevated cholesterol HTN (hypertension) Family History Family history of problems with anesthesia: No Surgical History Surgical History H/O colonoscopy Hx of cataract extraction Hx of elbow surgery Hx of hysterectomy History of Problems with Anesthesia: No Social History Social History Are you a primary childcare center director to a significant other at home: No Do you presently have visiting nurse or other home services: No Patient Tobacco Use Status: Never used Tobacco Second Hand Smoke Exposure: No Use of substances other than those prescribed or required for medical reasons: No Have you been hit, kicked, punched, or otherwise hurt by someone within the past year? If so, by whom?: No Are you DNR?: No Advance Directives: No Advance Directives Information Provided: Yes Advance Directives on File: No Recently lost weight without trying: No Eating poorly because of decreased appetite: No Nutrition Risks: No Nutritional Risk Patient : No : No Poor oral hygiene: No Meds Allergies Allergy/AdvReac Type Severity Reaction Status Date / Time No Known Allergies Allergy Verified 01/17/23 11:03 Home Medications ?Medication ?Instructions ?Recorded ?Confirmed ?Last Taken ?Type losartan 50 mg-hydrochlorothiazide 1 tab PO DAILY 01/17/23 10/09/24 10/13/24 History 12.5 mg tablet metformin 500 mg tablet,extended 500 mg PO BID 01/17/23 10/09/24 Unknown History release 24 hr rosuvastatin 10 mg tablet 10 mg PO DAILY 10/09/24 10/09/24 Unknown History Exam Height,Weight and Vital Signs: Height 5 ft 1 in Weight 77.564 kg Assessment and Plan Assessment Anesthesia Assessment: Chart Reviewed Final Anesthetic Review Family History of Problems with Anesthesia: No History of Problems with Anesthesia: No Documented by User: Analia Gaytan MD 10/13/24 08:59 PMFSH Past Medical History Medical History Hx of fracture of arm Diabetes Elevated cholesterol HTN (hypertension) Family History Family history of problems with anesthesia: No Surgical History Surgical History H/O colonoscopy Hx of cataract extraction Hx of elbow surgery Hx of hysterectomy History of Problems with Anesthesia: No Social History Social History Are you a primary childcare center director to a significant other at home: No Do you presently have visiting nurse or other home services: No Patient Tobacco Use Status: Never used Tobacco Second Hand Smoke Exposure: No Use of substances other than those prescribed or required for medical reasons: No Have you been hit, kicked, punched, or otherwise hurt by someone within the past year? If so, by whom?: No Are you DNR?: No Advance Directives: No Advance Directives Information Provided: Yes Advance Directives on File: No Recently lost weight without trying: No Eating poorly because of decreased appetite: No Nutrition Risks: No Nutritional Risk Patient : No : No Poor oral hygiene: No Meds Allergies Allergy/AdvReac Type Severity Reaction Status Date / Time No Known Allergies Allergy Verified 01/17/23 11:03 Home Medications ?Medication ?Instructions ?Recorded ?Confirmed ?Last Taken ?Type losartan 50 mg-hydrochlorothiazide 1 tab PO DAILY 01/17/23 10/09/24 10/13/24 History 12.5 mg tablet metformin 500 mg tablet,extended 500 mg PO BID 01/17/23 10/09/24 Unknown History release 24 hr rosuvastatin 10 mg tablet 10 mg PO DAILY 10/09/24 10/09/24 Unknown History Exam Height,Weight and Vital Signs: Height 5 ft 1 in Weight 77.564 kg Vital Signs Temp Pulse Resp BP Pulse Ox O2 Del Method 10/13/24 07:58 97.6 F 62 16 137/47 L 98 Room Air Pertinent Lab Results Pertinent Lab Results: Lab Results 10/13/24 Range/Units 08:39 POC Glucose 105 (60-115) mg/dL Airway Mallampati Class: II TM Dist: >3cm Neck ROM: Full Denture: Upper and Lower Loose/Missing/Broken Teeth: Yes Heart: RRR Lungs: CTAB Assessment and Plan Assessment Anesthesia Assessment: Anesthesia Plan Discussed and Chart Reviewed Final Anesthetic Review Family History of Problems with Anesthesia: No History of Problems with Anesthesia: No NPO: Yes ASA Class: II Final Preanesthetic Review: No Changes in Pt Med Stat, Meds/Allgs Chart Reviewed, Consent Obtained/Reviewed and Anes Risks/Benef Reviewed Patient Risk: Low Procedure Risk: Low Assessment/Block/Sedation in SS: Assess/Block/Sedation-SS Anesthetic Plan Anesthetic Plan: TIVA Disposition: Standard PACU
[2024-10-13 07:48] VITALS: BMI 30.8
[2024-10-13 07:58] VITALS: BP 137/47; PULSE 62; RESP 16; TEMP 36.4; O2SAT 98
[2024-10-13] MEDS: Lactated Ringers 1,000 ML 100 ML IVCONT (08:07)
[2024-10-13 08:45] LABS: Glucose, Whole Blood 105 mg/dL (60-115)
--- NOTE | 2024-10-13 09:34 | PM.OP ---
Brief Operative Note Date of Service: 10/13/24 Pre-op diagnosis: Screening Post-op diagnosis: other (Polyp, Melanosis coli) Procedure: Colonoscopy to the cecum with bx/removal of polyp Surgeon: Felix Pettit MD Anesthesia: MAC Was an Partition Making Machine Operator used for this Procedure?: No Estimated blood loss (mL): 2.0 Pathology: other (A. Cecal polyp) Condition: stable Disposition: PACU
[2024-10-13 09:35] VITALS: BP 109/56; PULSE 63; RESP 24; TEMP 36.1; O2SAT 98
[2024-10-13 09:52] VITALS: BP 125/68; PULSE 51; RESP 24; O2SAT 98
--- NOTE | 2024-10-13 09:56 | OP_ITS ---
DATE OF SERVICE: 10/13/2024 SURGEON: Felix Pettit MD INDICATIONS: The patient presents for evaluation of colorectal cancer screening. Full consent has been obtained from her for this, including risks of bleeding and perforation. PREOPERATIVE DIAGNOSIS: Colorectal cancer screening. POSTOPERATIVE DIAGNOSIS: PROCEDURE PERFORMED: Colonoscopy to the cecum with biopsy and removal of polyp. ESTIMATED BLOOD LOSS: COMPLICATIONS: ANESTHESIA: Medication used, monitored anesthesia care. ASSISTANTS: SPECIMENS: POSTOPERATIVE DIAGNOSES: Colorectal cancer screening, small colon polyp, melanosis coli, diverticulosis and internal hemorrhoids. DESCRIPTION OF PROCEDURE: The patient was placed in the left lateral decubitus position. The digital rectal exam revealed no abnormalities. The Olympus video pediatric colonoscope was entered into the rectum and advanced to the cecum with the assistance of abdominal wall pressure. Once in the cecum, I did identify cecal pouch with appendiceal orifice and a normal-appearing ileocecal valve. The entire cecum was well visualized and appeared normal other than mucosal changes of melanosis coli, and an approximately 4 mm polyp, which was biopsied and completely removed with a cold biopsy forceps. The appendiceal orifice appeared normal. The scope was slowly withdrawn assessing all mucosal surfaces carefully. Preparation was excellent. There was a diffuse mucosal change consistent with a melanosis coli, but no sign of any other polyps, colitis, nor angiodysplasia. There was a mild amount of sigmoid diverticulosis. In the rectum, scope was retroflexed visualizing internal hemorrhoids, but no other pathology. The rectal mucosa appeared normal. Scope was straightened and withdrawn from the patient. She tolerated the procedure well and was returned to the recovery area in stable condition. IMPRESSION: 1. Colon polyp. 2. Diverticulosis. 3. Internal hemorrhoids. 4. Melanosis coli. PLAN: The results of the biopsy will be checked. If this is a tubular adenoma, I would recommend a followup coloscopy in 5 years. If it is only hyperplastic, I would recommend a followup coloscopy in 10 years. She will otherwise see me on a p.r.n. basis. MD XAVI Milligan/SONJA / [phone]
== END 2024-10-13 10:51 | disposition home or self-care (01) ==
PROVIDERS: PCP Internal Medicine; Visit Provider Internal Medicine
PROC: 0DJD8ZZ Inspection of Lower Intestinal Tract, Via Natural or Artificial Opening Endoscopic (ICD-10-PCS; CPT 45378; principal; 2024-10-13 08:30)
DX: Z12.11 Encounter for screening for malignant neoplasm of colon (principal); D12.0 Benign neoplasm of cecum; K57.30 Diverticulosis of large intestine without perforation or abscess without bleeding; K64.8 Other hemorrhoids; K63.89 Other specified diseases of intestine; I10 Essential (primary) hypertension; E78.00 Pure hypercholesterolemia, unspecified; E11.9 Type 2 diabetes mellitus without complications; Z79.84 Long term (current) use of oral hypoglycemic drugs; Z79.899 Other long term (current) drug therapy; Z98.890 Other specified postprocedural states
CPT/HCPCS: 45380; 82947; 88305; J2003; J2704

== ENCOUNTER 2025-01-07 13:18 | Outpatient (REF) | payer MEDICARE, SELFPAY ==
[2025-01-07 14:07] LABS: Estimated Average Glucose 154 mg/dL; Total Hemoglobin (HGBA1C) 3126.8035 umol/L
--- OUTSIDE RECORDS SUMMARY | 2025-01-07 14:10 | XMS_ITS ---
Author Organization [facility] Address [address] [place] [address] Care Team Providers Care Passenger Representative Name Role Phone Jazmin Whitley Primary Care Provider Unavailab Felix Vicente [phone] Encounters Encounter Location Date Provider Diagnosis [facility] [address] [place] [address] 09/08/2024 Felix Pettit Plan Of Treatment No Information Progress Notes * DUSTIN RAMOS PDOB:1949 (74 yo F)Acc No.[id number]:09/08/2024 Patient:?DUSTIN RAMOS :1950???Age:74 Y???Sex:Female Address:[address] [place] [address], [address] * true * Date:? Generated for Josefinai jonathan/Roderick/eTransmitting on:?01/07/2025 02:10 PM EDT
[2025-01-07 14:23] LABS: Alanine Aminotransferase 39 U/L (0-31); Albumin Level 4.4 g/dL (3.5-5.0); Alkaline Phosphatase 67 U/L (39-117); Anion Gap 11 (12-20); Aspartate Amino Transferase 28 U/L (5-31); Bilirubin Total 0.4 mg/dL (0.0-1.0); Blood Urea Nitrogen 12 mg/dL (9-16); Calcium 9.2 mg/dL (8.4-10.2); Carbon Dioxide 29 mmol/L (22-29); Chloride 103 mmol/L (96-108); Estimated Glomerular Filt Rate > 60; Glucose Random 93 mg/dL (60-115); Potassium 4.3 mmol/L (3.3-5.1); Sodium 139 mmol/L (135-145); Total Protein 7.4 g/dL (6.5-8.0)
== END 2025-01-07 13:19 | disposition home or self-care (01) ==
LOC: HO.LAB 13:18
PROVIDERS: PCP Internal Medicine; Visit Provider Internal Medicine
DX: E11.9 Type 2 diabetes mellitus without complications (principal); I10 Essential (primary) hypertension; R74.01 Elevation of levels of liver transaminase levels; Z68.32 Body mass index [BMI] 32.0-32.9, adult
CPT/HCPCS: 36415; 80053; 83036

== ENCOUNTER 2025-04-06 14:00 | Outpatient (REF) | payer MEDICARE, SELFPAY ==
--- OUTSIDE RECORDS SUMMARY | 2024-10-13 04:30 | XMS_ITS ---
Author Organization [facility] Address [address] [place] [address] Care Team Providers Care Risk Lead Name Role Phone KathiaJazmin bentley Primary Care Provider UnavailFelix Rangel [phone] REASON FOR VISIT screening Encounters Encounter Location Date Provider Diagnosis [facility] Outpatient [address] [place] [phone] 10/13/2024 Felix Pettit Colon cancer scree landon Z12.11 ; Colon polyps K63.5 ; Diverticulosis of colon K57.30 ; Internal hemorrhoid K64.8 and Colonic mass K63.89 Assessments Encounter Date Diagnosis (ICD Code) Assessment Notes Treatment Notes Treatment Clinical Notes Section Notes 10/13/2024 Colon cancer screening (ICD-10 - Z12.11) 10/13/2024 Colon polyps (ICD-10 - K63.5) 10/13/2024 Diverticulosis of colon (ICD-10 - K57.30) 10/13/2024 Internal hemorrhoid (ICD-10 - K64.8) 10/13/2024 Colonic mass (ICD-10 - K63.89) Plan Of Treatment No Information Progress Notes * DUSTIN RAMOS PDOB:1949 (74 yo F)Acc No.[id number]:10/13/2024 COLON WITH MAC Patient: Ramon SCHMITTDUSTIN BROWNE Provider: Joe Pettit MD :1950 A ge:74 Y S ex:Female Date:10/13/2024 Address:[address] [place], [place] [id number] Pcp:Jazmin Whitley Subjective: * Chief Complaints: * 1 . Screening. * Medical History: Objective: * Vitals: Assessment: * Assessment: 1. C olon cancer screening - Z12.11 (Primary) 2 . C olon polyps - K63.5? 3. D iverticulosis of colon - K57.30 4 . I nternal hemorrhoid - K64.8 5 . C olonic mass - K63.89 Plan: * Treatment: * Procedure Codes: 4 5380 COLONOSCOPY AND BIOPSY, Modifiers: PT , 0529F INTRVL 3+YRS PTS CLNSCP DOCD, 0528F RCMND FLW-UP 10 YRS DOCD * * The named appointment provid er may or may not be the originator of this progress note, and it is not deemed complete until electronically signed by the appointment provider. Sign off status: Pending * Provider: Joe Pettit MD Date: 0 10/13/2024 Generated for Uzma castillo/Roderick/Johnyitting on: 0 04/06/2025 03:22 PM EDT
--- NOTE | ~2025-04-06 | MM_ITS ---
EXAMINATION: MM SCREENING DIGITAL BREAST TOMOSYNTHESIS, BILATERAL CLINICAL INFORMATION: Screening. Asymptomatic. COMPARISON: Comparison made to multiple prior, most recent March 31, 2024, and most remote February 19, 2019. TECHNIQUE: Digital breast tomosynthesis is performed in both the craniocaudal and mediolateral oblique views along with computer-aided detection (CAD). FINDINGS: BREAST COMPOSITION: There are scattered areas of fibroglandular density (ACR BI-RADS breast composition Category b). RIGHT BREAST: Tissue marker from previous needle core biopsy. Asymmetry in the upper breast middle depth on the MLO view is similar to 2021. No significant masses, suspicious calcifications or other abnormalities are seen. LEFT BREAST: Tissue marker from previous needle core biopsy. No significant masses, suspicious calcifications or other abnormalities are seen. MM/MM tomosynthesis screening BI IMPRESSION: BILATERAL BREASTS: Benign, no mammographic evidence of malignancy. Normal interval follow-up is recommended in 12 months. ASSESSMENT: BI-RADS 2 - Benign Findings RECOMMENDATION: Routine annual mammography screening. FOLLOW-UP: 1 year F/U This examination should not preclude the clinical evaluation of a suspicious palpable abnormality. This patient's information was entered into a reminder system with a target due date for their next mammogram. Electronically signed by: Kennedy Álvarez MD 04/10/2025 06:49 PM EDT
[2025-04-06 14:44] LABS: MANUAL DIFF FLAG NO
[2025-04-06 15:15] LABS: Hematocrit 36.0 % (37.0-47.0); Hemoglobin 11.8 g/dl (12.0-16.0); Imm Gran Abs Auto 0.03 X10*3/uL (0.00-0.03); Imm Gran Pct Auto 0.3 % (0.0-0.4); Lymphocytes Absolute Auto 3.3 X10*3/uL (1.2-4.9); Mean Corpuscular HGB Conc 32.8 g/dl (31.0-35.0); Mean Corpuscular Hemoglobin 30.6 pg (27.0-33.0); Mean Corpuscular Volume 93.5 fL (80.0-98.0); NRBC Abs Auto 0.000 X10*3/uL (0.0-0.012); NRBC Pct Auto 0.0 /100WBC (0.0-0.2); Platelet Count 355 X10*3/uL (160-400); Red Blood Count 3.85 X10*6/uL (4.20-5.50); White Blood Count 9.2 X10*3/uL (4.8-10.8)
--- OUTSIDE RECORDS SUMMARY | 2025-04-06 15:22 | XMS_ITS | Patient Health Record ---
Author Organization [facility] Address [address] [place] [address] Care Team Providers Care Room Cleaner Name Role Phone Jazmin Whitley Primary Care Provider UnavailFelix Rangel Unavailable [phone] Allergies No Known Allergies Results Component Value Reference Range Notes Glucose, Whole Blood Reviewed date:10/14/2024 12:39:45 PM Interpretation: Performing Lab:[facility], [address] [place] [phone] Notes/Report: Glucose, Whole Blood 105 60-115 mg/dL METER # : [id number] Pathology (Not yet reviewed by provider) Interpretation: Performing Lab:[facility], [address] [place] [phone] Notes/Report: Reason For Referral No Information Medications Medication SIG (Take, Route, Frequency, Duration) Notes Start Date End Date Status Losartan Potassium-HCTZ 100-12.5 MG TAKE 1 TABLET BY MOUTH EVERY DAY . REPLACES 50/12.5 TAB Oral for 90 Active metFORMIN HCl ER 500 MG TAKE 1 TABLET BY MOUTH TWICE A DAY Oral for 90 Active Rosuvastatin Calcium 10 MG TAKE 1 TABLET BY MOUTH EVERY DAY Oral for 90 Active Social History Tobacco Use: Social History Observation Description Date Details (start date - stop date) Never Smoker NA - NA Tobacco Use/Smoking Question Answer Notes Patient is a nonsmoker Alcohol Screen Question Answer Notes Did you have a drink containing alcohol in the p ast year? No Points 0 Interpretation Negative Section Notes: Nonsmoker; no sig alcohol Originally from [place]ame [place] Nonsmoker; no sig alcohol [place] from [place] Problems Problem Type SNOMED Code ICD Code Onset Dates Problem Status W/U Status Risk Notes Problem [id number] Colon cancer screening (Z12.11) Active confirmed Problem 706224602190673 Preprocedural examination (Z01.818) Active confirmed Vital Signs Blood pressure diastolic 00 mm Hg 05/27/2024 Height 61 in 05/27/2024 Blood pressure systolic 00 mm Hg 05/27/2024 Weight 171 lbs 05/27/2024 BMI 32.31 kg/m2 05/27/2024 Encounters Encounter Location Date Provider Diagnosis [facility] Out[facility] [address] [place] [phone] 10/13/2024 Felix Pettit Colon cancer screeni ng Z12.11 ; Colon polyps K63.5 ; Diverticulosis of colon K57.30 ; Internal hemorrhoid K64.8 and Colonic mass K63.89 [facility] [address] [place] [address] 05/27/2024 Felix Pettit Colon cancer screeni ng Z12.11 and Preprocedural examination Z01.818 [facility] [address] [place] [address] 06/30/2024 Felix Pettit [facility] [address] [place] [address] 09/08/2024 Felix Pettit Assessments Encounter Date Diagnosis (ICD Code) Assessment Notes Treatment Notes Treatment Clinical Notes Section Notes 10/13/2024 Colon cancer screening (ICD-10 - Z12.11) 10/13/2024 Colon polyps (ICD-10 - K63.5) 05/27/2024 Colon cancer screening (ICD-10 - Z12.11) Do not take the Metformin the night before or on the morning of the colonoscopy Overall, Dustin appears well. I did recommend a followup colonoscopy for further screening purposes given her history and her excellent clinical appearance. We did review the rationale for this in regard to colon cancer prevention. Full consent has been obtained from her for this, including risks of bleeding and perforation. The procedure will be done with monitored anesthesia care. She was given the below instruction regarding adjustment of her medication for the procedure. Dustin was comfortable with this plan. Thank you again for allowing me to participate in Dustin's care. I shall continue to keep you advised of her progress. 05/27/2024 Preprocedural examination (ICD-10 - Z01.818) Overall, Dustin appears well. I did recommend a followup colonoscopy for further screening purposes given her history and her excellent clinical appearance. We did review the rationale for this in regard to colon cancer prevention. Full consent has been obtained from her for this, including risks of bleeding and perforation. The procedure will be done with monitored anesthesia care. She was given the below instruction regarding adjustment of her medication for the procedure. Dustin was comfortable with this plan. Thank you again for allowing me to participate in Dustin's care. I shall continue to keep you advised of her progress. 10/13/2024 Diverticulosis of colon (ICD-10 - K57.30) 10/13/2024 Internal hemorrhoid (ICD-10 - K64.8) 10/13/2024 Colonic mass (ICD-10 - K63.89) Plan Of Treatment Pending Test Test Name Order Date Pathology 10/13/2024 Future Test Test Name Order Date COLONOSCOPY 05/27/2024 Insurance Providers Payer Name Payer Address Payer Phone Subscriber Number Group Number Insured Name Patient Relationship to Insured Coverage Start Date Coverage End Date [facility] [address] [place], [place] [phone] [id number] DUSTIN RAMOS Self - patient is the insured Medical (General) History Medical History History ICD Code Denies SD,CVA,Lung disease,renal disease Negative colonoscopy in CT i [...]
[2025-04-06 15:24] LABS: Hemoglobin A1C 157.8552 umol/L; Total Hemoglobin (HGBA1C) 3189.6777 umol/L
[2025-04-06 15:43] LABS: Alanine Aminotransferase 59 U/L (0-31); Albumin Level 4.5 g/dL (3.5-5.0); Alkaline Phosphatase 78 U/L (39-117); Anion Gap 14 (12-20); Aspartate Amino Transferase 11 U/L (5-31); Blood Urea Nitrogen 15 mg/dL (9-16); Calcium 9.5 mg/dL (8.4-10.2); Carbon Dioxide 25 mmol/L (22-29); Chloride 103 mmol/L (96-108); Cholesterol 157 mg/dL (<200); Estimated Glomerular Filt Rate 60; HDL Cholesterol 52 mg/dL (>40); Potassium 4.3 mmol/L (3.3-5.1); Sodium 138 mmol/L (135-145); Total Protein 7.7 g/dL (6.5-8.0); Triglycerides 295 mg/dL (<150)
[2025-04-06 15:48] LABS: Microalbum/Creatinine Ratio Ur 6.9 ug/mg cr (<30)
== END 2025-04-06 14:01 | disposition home or self-care (01) ==
LOC: HO.MAMMO 14:00
PROVIDERS: PCP Internal Medicine; Visit Provider Internal Medicine
DX: Z12.31 Encounter for screening mammogram for malignant neoplasm of breast (principal); E11.9 Type 2 diabetes mellitus without complications; I10 Essential (primary) hypertension; R74.01 Elevation of levels of liver transaminase levels
CPT/HCPCS: 36415; 77063; 77067; 80053; 80061; 82043; 82570; 83036; 85025

== ENCOUNTER → 2025-04-06 14:30 | Outpatient (BNV) | payer MEDICARE, SELFPAY | PROVIDERS: PCP Internal Medicine; Visit Provider Radiology Body Imaging | DX: Z12.31 Encounter for screening mammogram for malignant neoplasm of breast (principal) | CPT/HCPCS: 77063; 77067 ==